=== PATIENT | female | born 1970 | race Caucasian/White ===

== ENCOUNTER 2018-08-13 15:49 | Inpatient (IN) | payer BC ==
[~2018-08-13] VITALS: Ht 167.6 cm; Wt 106.7 kg
[2018-08-13 18:00] VITALS: BP 145/84
[2018-08-13] MEDS ORDERED: FLUO20CA16 PO (18:05)
[2018-08-13] MEDS ORDERED: CARV3.12 PO (18:06)
[2018-08-13 18:22] LABS: BILIRUBIN,URINE NEGATIVE (NEG); CLARITY,URINE CLEAR; COLOR,URINE YELLOW; NITRITE,URINE NEGATIVE (NEG); PROTEIN,URINE NEGATIVE (NEG-TRACE); UROBILINOGEN,URINE 0.2 mg/dL (0.2 mg/dL)
[2018-08-13 18:27] LABS: BARBITURATES NEG (NEG); BENZODIAZEPINES NEG (NEG); CANNABINOIDS NEG (NEG); COCAINE NEG (NEG); METHADONE NEG (NEG); OPIATES NEG (NEG); PHENCYCLIDINE NEG (NEG)
[2018-08-13 18:37] LABS: AMPHETAMINE/METHAMPHETAMINE NEG (NEG)
[2018-08-13 18:39] LABS: BACTERIA,URINE FEW /HPF (0-FEW); RBC,URINE OCC /HPF (0-2); SQUAMOUS EPITHELIAL CELL,UR OCC /LPF; WBC,URINE OCC /HPF (0-4)
[2018-08-13 19:37] VITALS: BP 145/71
[2018-08-13] MEDS: CIPROFLOXACIN 400MG PREMIX 200 ML IV SCH (20:05)
[2018-08-13] MEDS: ACETAMINOPHEN 325 MG TABLET. PO PRN (21:25)
[2018-08-13 23:35] VITALS: BP 112/67
[2018-08-14] MEDS: ACETAMINOPHEN 325 MG TABLET. PO PRN (03:23)
[2018-08-14 03:39] VITALS: BP 140/65
[2018-08-14 07:14] VITALS: BP 131/66
[2018-08-14] MEDS: CIPROFLOXACIN 400MG PREMIX 200 ML IV SCH (08:23)
--- NOTE | 2018-08-14 09:34 | PDOC2 ---
GI CONSULT Reason For Consult: Abd pain, gastroenteritis HPI: HPI: 47 y/o female transferred to [facility] from [facility]. Not feeling "normal" for about a week w/ nausea and some early satiety - gives examples of not finishing her mac 'n cheese and chicken strips at [employer] on and not eating much biscuits and gravy at home on Tuesday. Prior to that, spent some time at - her son attempted suicide and was there (now doing better and is home) - she ate in the cafeteria without issue and also at a nearby [employer]. On Tuesday night (a couple hours after biscuits and gravy), was playing Monopoly w/ her and son and developed a sharp pain "about two fingers above the belly button." Pain worsened the next day and spread to the left side around to flank/back but was able to eat spaghetti and cake and ice cream. Tebbetts a little feverish (says temp 100 at home). The pain is worse w/ deep breathing and movement. She feels best laying completely still though pain is constant. No improvement on Tuesday so decided to go to the ER. Workup there noted WBC 17.6 w/ normal LFTs, lipase, Hgb, and Cr. On CT: mesenteric edema in the epigastric region towards the mesenteric root and about the mid to distal gastric body likely reactive to infectious or inflammatory gastroenteritis, mild mesenteric edema about the pancreas although the pancreas appears otherwise normal, no evidence of bowel obstruction or bowel perforation , hepatomegaly and hepatic steatosis. No labs here, has been kept NPO, is on IV Cipro and Flagyl. Denies h/o heartburn/reflux. No dysphagia. No vomiting. Did have change in bowel pattern about 6 months ago - previously stooled every 3 days, now has a couple loose stools every day - last bowel movement was yesterday morning. No hematemesis, hematochezia, or melena. No weight loss. No previous EGD or colonoscopy. No GB, liver, pancreas, or ulcer history. When pain started, took 3 ibuprofen but does not use NSAIDs regularly. PMH: PMH: HTN, nephrolithiasis, depression/anxiety , laparoscopies (for endometriosis), hysterectomy, lymph node biopsy ( benign), myringotomy FH: Family History: Cancer (father - NHL), CVA, Hyperlipidemia, Hypertension Social History: Smoke: 1 pack per day ALCOHOL: rare Drugs: None ROS: GEN: +fever HEENT: Denies blurred vision, sore throat CV: Denies chest pain RESP: Denies shortness of air, cough GI: Per HPI : Denies hematuria, dysuria ENDO: Denies weight changes NEURO: Denies confusion, dizziness MSK: Denies weakness, joint pain/swelling SKIN: Denies jaundice, pruritus Vitals: Vitals: Vital Signs Date Time Temp Pulse Resp B/P (MAP) Pulse Ox O2 Delivery O2 Flow Rate FiO2 08/14/18 07:14 98.5 76 18 131/66 (87) 100 Room Air 98.5 Labs: Labs: Laboratory Tests Test 08/13/18 18:10 Urine Collection Type Unknown Urine Color Yellow Urine Clarity Clear Urine pH 7.0 Urine Specific [place] 1.020 Urine Protein Negative mg/dL (NEG-TRACE) Urine Glucose (UA) Negative mg/dL (NEG) Urine Ketones (Stick) Negative mg/dL (NEG) Urine Blood Moderate (NEG) Urine Nitrite Negative (NEG) Urine Bilirubin Negative (NEG) Urine Urobilinogen Dipstick 0.2 mg/dL (0.2 mg/dL) Urine Leukocyte Esterase Negative (NEG) Urine RBC Occ /HPF (0-2) Urine WBC Occ /HPF (0-4) Urine Squamous Epithelial Cells Occ /LPF Urine Bacteria Few /HPF (0-FEW) Urine Opiates Screen Neg (NEG) Urine Methadone Screen Neg (NEG) Urine Barbiturates Neg (NEG) Urine Phencyclidine Screen Neg (NEG) Urine Amphetamine/Methamphetamine Neg (NEG) Urine Benzodiazepines Screen Neg (NEG) Urine Cocaine Screen Neg (NEG) Urine Cannabinoids Screen Neg (NEG) Urine Ethyl Alcohol Neg (NEG) Allergies: Coded Allergies: codeine (Verified Allergy, Unknown, 08/13/18) hydrocodone (Verified Allergy, Unknown, 08/13/18) Medications: Current Medications Medications (Trade) Dose Ordered Sig/Maritza Route PRN Reason Start Time Stop Time Status Last Admin Dose Admin Ciprofloxacin/ Dextrose 200 ml @ 200 mls/hr Q12HR IV 08/13/18 21:00 08/14/18 08:23 Metronidazole 100 ml @ 100 mls/hr Q8HRS IV 08/13/18 22:00 08/14/18 05:15 Acetaminophen (Tylenol) 650 mg PRN Q6HRS PRN PO fever/pain 08/13/18 20:45 08/14/18 03:23 Imaging: Imaging: Per HPI. PE: GEN: NAD, family/friends present HEENT: Atraumatic, PERRL LUNGS: CTAB HEART: RRR ABD: quiet BS, large, epigastric tenderness to light palpation tracking to LUQ and under ribs/around to flank EXTREMITY: No edema SKIN: No rashes, no jaundice NEURO/PSYCH: A & O 3 A/P: A/P: Periumbilical/LUQ pain, early satiety Fever, leucocytosis Abnormal CT - mesenteric edema in the epigastric region towards the mesenteric root and about the mid to distal gastric body, mild mesenteric edema about the pancreas CRC screen - average risk Hepatic steatosis -- Reviewed w/ Dr. Salguero - herman to try clear liquids; he will see this afternoon. Note plans to recheck labs and for ID consult. JELANI KATE Aug 14, 2018 09:34
[2018-08-14] MEDS ORDERED: ONDANSETRON ODT 4 MG TAB.RAPDIS. PO PRN (09:45)
[2018-08-14] MEDS ORDERED: ONDANSETRON PF 4 MG/2 ML VIAL. IV PRN (09:45)
[2018-08-14] MEDS: FLUoxetine HCL 20 MG CAPSULE PO SCH (09:55)
[2018-08-14] MEDS: CARVEDILOL 3.125 MG TABLET. PO SCH ×2 (09:56→17:44)
[2018-08-14] MEDS: fentaNYL PF VIAL 100 MCG/2 ML VIAL IV PRN ×4 (09:58→21:51)
[2018-08-14] MEDS: IV NORMAL SALINE 1000ML BAG 1,000 ML IV SCH (09:58)
[2018-08-14] MEDS ORDERED: PANTOPRAZOLE IV PUSH 40 MG VIAL. IVP ONE (10:30)
[2018-08-14 10:43] LABS: BASO # 0.1 x10^3/uL (0.0-0.2); BASO % 1 % (0-3); EOS # 0.2 x10^3/uL (0.0-0.7); EOS % 1 % (0-3); HEMOGLOBIN 13.4 g/dL (12.0-15.5); LYMPH # 2.8 x10^3/uL (1.0-4.8); LYMPH % 20 % (24-48); MEAN CORPUSCULAR HEMOGLOBIN 29 pg (25-35); MEAN CORPUSCULAR HGB CONC 33 g/dL (31-37); MEAN CORPUSCULAR VOLUME 90 fL (79-100); MONO # 0.9 x10^3/uL (0.0-1.1); MONO % 6 % (0-9); NEUT # 10.1 x10^3uL (1.8-7.7); NEUT % 72 % (31-73); PLATELET COUNT 278 x10^3/uL (140-400); RED BLOOD COUNT 4.56 x10^6/uL (3.50-5.40); RED CELL DISTRIBUTION WIDTH 13.9 % (11.5-14.5); WHITE BLOOD COUNT 14.1 x10^3/uL (4.0-11.0)
[2018-08-14 10:53] LABS: PROTHROMBIN TIME PATIENT 15.5 SEC (11.7-14.0)
[2018-08-14 10:57] VITALS: BP 107/58
[2018-08-14 11:09] LABS: ALBUMIN/GLOBULIN RATIO 0.7 (1.0-1.7); CALCIUM 8.6 mg/dL (8.5-10.1); CREATININE 0.7 mg/dL (0.6-1.0); GFR 89.7; POTASSIUM 3.5 mmol/L (3.5-5.1); TOTAL BILIRUBIN 0.7 mg/dL (0.2-1.0); TOTAL PROTEIN 7.3 g/dL (6.4-8.2)
--- NOTE | 2018-08-14 11:50 | NUR ---
SW following pt for anticipated dc needs. Chart reviewed. Pt is home from spouse and on room air. No discharge recommendation/SW needs noted at this time. Will continue to follow.
--- NOTE | 2018-08-14 13:36 | PDOC1 ---
History and Physical Date of Admission Date of Admission DATE: 08/14/18 TIME: 13:30 Identification/Chief Complaint Chief Complaint Acute onset upper abdominal pain and back pain Source Source: Caregiver, Chart review, Patient History of Present Illness History of Present Illness 78-year-old white female, obese lives with family, Tuesday or Tuesday acute onset upper abdominal pain also involving the back. Maybe moved his left upper quadrant. No known precipitating factors,foods, no recent travels or sick contacts. Notices it gets better when she is laying still or supine her left side. LOw grade temp? Went to [facility], WBC 17,000 with normal BMP and normal UA. CAT scan shows mesenteric edema around the pancreas also could represent nonspecific enteritis. Patient transferred here for GI. Has chronic diarrhea, 2 loose stool episodes a day. Never has a colonoscopy. Positive history of IBD Crohn's or ulcerative colitis in the aunt. Family history of recurrent diverticulitis. Has seen GI and ID. Getting IV antibiotics Cipro Flagyl. Still some pain but only needed 1 dose of fentanyl. I have updated her with the findings. Lipase is normal. Never had similar symptoms before NO Blood loose stools. The abd dc she describes more gassy sensation, feeling bloated easily Past Medical History Cardiovascular: HTN Pulmonary: Bronchitis GI: GERD Past Surgical History Past Surgical History: Hysterectomy Family History Family History: Other (diverticulitis, IBD in aunt) Social History Smoke: <1 pack per day ALCOHOL: occassional Drugs: None Current Medications Current Medications Current Medications Ciprofloxacin/ Dextrose 200 ml @ 200 mls/hr Q12HR IV Last administered on 08/14at 08:23; Start 08/13/18 at 21:00; Stop 08/14/18 at 12:43; Status DC Metronidazole 100 ml @ 100 mls/hr Q8HRS IV Last administered on 08/14/18at 05: 15; Start 08/13/18 at 22:00; Stop 08/14/18 at 12:43; Status DC Acetaminophen (Tylenol) 650 mg PRN Q6HRS PRN PO fever/pain Last administered on 08/14/18at 03:23; Start 08/13/18 at 20:45 Ondansetron HCl (Zofran) 4 mg PRN Q6HRS PRN IV NAUSEA/VOMITING; Start 08/14/18 at 09:45 Ondansetron HCl (Zofran Odt) 4 mg PRN Q6HRS PRN PO NAUSEA/VOMITING; Start 08/14 at 09:45 Fentanyl Citrate (Fentanyl 2ml Vial) 50 mcg PRN Q2HR PRN IV PAIN Last administered on 08/14/18at 09:58; Start 08/14/18 at 09:45 Pantoprazole Sodium (PROTONIX VIAL for IV PUSH) 40 mg DAILYAC IVP ; Start at 07:30; Stop 08/15/18 at 07:30; Status DC Pantoprazole Sodium (PROTONIX VIAL for IV PUSH) 40 mg 1X ONCE IVP Last administered on 08/14/18at 09:56; Start 08/14/18 at 10:30; Stop 08/14/18 at 10:31 ; Status DC Sodium Chloride 1,000 ml @ 100 mls/hr Q10H IV Last administered on 08/14/18at 09:58; Start 08/14/18 at 10:30 Carvedilol (Coreg) 3.125 mg BIDWMEALS PO Last administered on 08/14/18at 09:56; Start 08/14/18 at 10:30 Fluoxetine HCl (PROzac) 20 mg DAILYWBKFT PO Last administered on 08/14/18at 09: 55; Start 08/14/18 at 10:30 Pantoprazole Sodium (Protonix) 40 mg DAILYAC PO ; Start 08/15/18 at 07:30 Piperacillin Sod/ Tazobactam Sod 3.375 gm/Sodium Chloride 50 ml @ 100 mls/hr Q6HRS IV ; Start 08/14/18 at 13:30 Active Scripts Active Reported Coreg (Carvedilol) 3.125 Mg Tablet 3.125 Mg PO BIDWMEALS Prozac (Fluoxetine Hcl) 20 Mg Capsule 1 Cap PO DAILYWBKFT Allergies Allergies: Coded Allergies: codeine (Verified Allergy, Intermediate, 08/14/18) hydrocodone (Verified Allergy, Intermediate, 08/14/18) ROS Review of System Loose stools chronic for her 6 months Abdominal pain as per history of present illness, low-grade temperatures at home , the rest of ROS 14 point negative Physical Exam General: Alert, Oriented X3, Cooperative, No acute distress HEENT: Atraumatic, PERRLA, EOMI Lungs: Clear to auscultation, Normal air movement Heart: S1S2, RRR, no thrills, no rubs, no gallops, no murmurs Cardiovascular: S1, S2 Breasts: Normal, Rt breast nml w/o mass, Lt breast nml w/o mass, Nipples normal Abdomen: Soft, Other (hyperactive bowel sounds tenderness to moderate palpation epigastric area, no guarding) Rectal Exam: not examined Extremities: No clubbing, No cyanosis, No edema, Normal pulses, No tenderness/ swelling Skin: No breakdown Neuro: Normal gait, Normal speech, Strength at 5/5 X4 ext, Normal tone, Sensation intact, Cranial nerves 3-12 NL, Reflexes 2+ Psych/Mental Status: Mental status NL, Mood NL Vitals Vitals Vital Signs Date Time Temp Pulse Resp B/P (MAP) Pulse Ox O2 Delivery O2 Flow Rate FiO2 08/14/18 10:57 98.6 78 18 107/58 (74) 97 Room Air 98.6 Labs Labs Laboratory Tests Test 08/13/18 18:10 08/14/18 10:15 Urine Collection Type Unknown Urine Color Yellow Urine Clarity Clear Urine pH 7.0 Urine Specific [place] 1.020 Urine Protein Negative mg/dL (NEG-TRACE) Urine Glucose (UA) Negative mg/dL (NEG) Urine Ketones (Stick) Negative mg/dL (NEG) Urine Blood Moderate (NEG) Urine Nitrite Negative (NEG) Urine Bilirubin Negative (NEG) Urine Urobilinogen Dipstick 0.2 mg/dL (0.2 mg/dL) Urine Leukocyte Esterase Negative (NEG) Urine RBC Occ /HPF (0-2) Urine WBC Occ /HPF (0-4) Urine Squamous Epithelial Cells Occ /LPF Urine Bacteria Few /HPF (0-FEW) Urine Opiates Screen Neg (NEG) Urine Methadone Screen Neg (NEG) Urine Barbiturates Neg (NEG) Urine Phencyclidine Screen Neg (NEG) Urine Amphetamine/Methamphetamine Neg (NEG) Urine Benzodiazepines Screen Neg (NEG) Urine Cocaine Screen Neg (NEG) Urine Cannabinoids Screen Neg (NEG) Urine Ethyl Alcohol Neg (NEG) White Blood Count 14.1 x10^3/uL (4.0-11.0) Red Blood Count 4.56 x10^6/uL (3.50-5.40) Hemoglobin 13.4 g/dL (12.0-15.5) Hematocrit 41.0 % (36.0-47.0) Mean Corpuscular Volume 90 fL (79-100) Mean Corpuscular Hemoglobin 29 pg (25-35) Mean Corpuscular Hemoglobin Concent 33 g/dL (31-37) Red Cell Distribution Width 13.9 % (11.5-14.5) Platelet Count 278 x10^3/uL (140-400) Neutrophils (%) (Auto) 72 % (31-73) Lymphocytes (%) (Auto) 20 % (24-48) Monocytes (%) (Auto) 6 % (0-9) Eosinophils (%) (Auto) 1 % (0-3) Basophils (%) (Auto) 1 % (0-3) Neutrophils # (Auto) 10.1 x10^3uL (1.8-7.7) Lymphocytes # (Auto) 2.8 x10^3/uL (1.0-4.8) Monocytes # (Auto) 0.9 x10^3/uL (0.0-1.1) Eosinophils # (Auto) 0.2 x10^3/uL (0.0-0.7) Basophils # (Auto) 0.1 x10^3/uL (0.0-0.2) Prothrombin Time 15.5 SEC (11.7-14.0) Prothromb Time International Ratio 1.3 (0.8-1.1) Sodium Level 140 mmol/L (136-145) Potassium Level 3.5 mmol/L (3.5-5.1) Chloride Level 103 mmol/L (98-107) Carbon Dioxide Level 27 mmol/L (21-32) Anion Gap 10 (6-14) Blood Urea Nitrogen 6 mg/dL (7-20) Creatinine 0.7 mg/dL (0.6-1.0) Estimated GFR (Cockcroft-Gault) 89.7 BUN/Creatinine Ratio 9 (6-20) Glucose Level 119 mg/dL (70-99) Calcium Level 8.6 mg/dL (8.5-10.1) Total Bilirubin 0.7 mg/dL (0.2-1.0) Aspartate Amino Transf (AST/SGOT) 11 U/L (15-37) Alanine Aminotransferase (ALT/SGPT) 16 U/L (14-59) Alkaline Phosphatase 74 U/L (46-116) Total Protein 7.3 g/dL (6.4-8.2) Albumin 3.0 g/dL (3.4-5.0) Albumin/Globulin Ratio 0.7 (1.0-1.7) Laboratory Tests Test 08/13/18 18:10 08/14/18 10:15 Urine Collection Type Unknown Urine Color Yellow Urine Clarity Clear Urine pH 7.0 Urine Specific [place] 1.020 Urine Protein Negative mg/dL (NEG-TRACE) Urine Glucose (UA) Negative mg/dL (NEG) Urine Ketones (Stick) Negative mg/dL (NEG) Urine Blood Moderate (NEG) Urine Nitrite Negative (NEG) Urine Bilirubin Negative (NEG) Urine Urobilinogen Dipstick 0.2 mg/dL (0.2 mg/dL) Urine Leukocyte Esterase Negative (NEG) Urine RBC Occ /HPF (0-2) Urine WBC Occ /HPF (0-4) Urine Squamous Epithelial Cells Occ /LPF Urine Bacteria Few /HPF (0-FEW) Urine Opiates Screen Neg (NEG) Urine Methadone Screen Neg (NEG) Urine Barbiturates Neg (NEG) Urine Phencyclidine Screen Neg (NEG) Urine Amphetamine/Methamphetamine Neg (NEG) Urine Benzodiazepines Screen Neg (NEG) Urine Cocaine Screen Neg (NEG) Urine Cannabinoids Screen Neg (NEG) Urine Ethyl Alcohol Neg (NEG) White Blood Count 14.1 x10^3/uL (4.0-11.0) Red Blood Count 4.56 x10^6/uL (3.50-5.40) Hemoglobin 13.4 g/dL (12.0-15.5) Hematocrit 41.0 % (36.0-47.0) Mean Corpuscular Volume 90 fL (79-100) Mean Corpuscular Hemoglobin 29 pg (25-35) Mean Corpuscular Hemoglobin Concent 33 g/dL (31-37) Red Cell Distribution Width 13.9 % (11.5-14.5) Platelet Count 278 x10^3/uL (140-400) Neutrophils (%) (Auto) 72 % (31-73) Lymphocytes (%) (Auto) 20 % (24-48) Monocytes (%) (Auto) 6 % (0-9) Eosinophils (%) (Auto) 1 % (0-3) Basophils (%) (Auto) 1 % (0-3) Neutrophils # (Auto) 10.1 x10^3uL (1.8-7.7) Lymphocytes # (Auto) 2.8 x10^3/uL (1.0-4.8) Monocytes # (Auto) 0.9 x10^3/uL (0.0-1.1) Eosinophils # (Auto) 0.2 x10^3/uL (0.0-0.7) Basophils # (Auto) 0.1 x10^3/uL (0.0-0.2) Prothrombin Time 15.5 SEC (11.7-14.0) Prothromb Time International Ratio 1.3 (0.8-1.1) Sodium Level 140 mmol/L (136-145) Potassium Level 3.5 mmol/L (3.5-5.1) Chloride Level 103 mmol/L (98-107) Carbon Dioxide Level 27 mmol/L (21-32) Anion Gap 10 (6-14) Blood Urea Nitrogen 6 mg/dL (7-20) Creatinine 0.7 mg/dL (0.6-1.0) Estimated GFR (Cockcroft-Gault) 89.7 BUN/Creatinine Ratio 9 (6-20) Glucose Level 119 mg/dL (70-99) Calcium Level 8.6 mg/dL (8.5-10.1) Total Bilirubin 0.7 mg/dL (0.2-1.0) Aspartate Amino Transf (AST/SGOT) 11 U/L (15-37) Alanine Aminotransferase (ALT/SGPT) 16 U/L (14-59) Alkaline Phosphatase 74 U/L (46-116) Total Protein 7.3 g/dL (6.4-8.2) Albumin 3.0 g/dL (3.4-5.0) Albumin/Globulin Ratio 0.7 (1.0-1.7) VTE Prophylaxis Ordered VTE Prophylaxis Devices: Yes VTE Pharmacological Prophylaxi: Yes Assessment/Plan Assessment/Plan Enteritis, mesenteric inflammation around the pancreas Normal lipase Leukocytosis/SIRS - WBC 17 at [facility] Family history IBD-aunt Chronic diarrhea-2 loose stools 6 months Never had a c scope PLAN: Admit 2 MN So far liquid diet and tolerating fine-she is eager to have some solids I don't see any reason why we cannot do GI soft Continue IV abx GI and ID consulted Recheck labs, WBC 14 today from 17 (lactate only 1 at [facility]) I did explain all her findings at [facility] and she understands We'll need c scope down the line Home meds reconciled Mg RN at bedside APOLINAR CULLEN MD Aug 14, 2018 13:36
[2018-08-14] MEDS: PIPERACILLIN/TAZOBACTAM 3.375 GM in IV NORMAL SALINE 50ML 50 ML IV SCH ×2 (13:45→17:44)
[2018-08-14 14:50] VITALS: BP 105/56
--- NOTE | 2018-08-14 15:41 | CONS ---
DATE OF CONSULTATION: 08/14/2018 REFERRING PHYSICIAN: Dr. Crews. REASON FOR CONSULTATION: Abdominal pain. HISTORY OF PRESENT ILLNESS: A 48-year-old female transferred to [facility] from [facility] where she presented with complaints of sudden onset of abdominal pain last Tuesday when she and her and son were playing monopoly. It started around the umbilical area and moved to the left upper quadrant radiating to the flank, it was a stabbing in nature, more comfortable with standing, worse with lying down flat. Then, it continued to remain the same and was worse with any movement and with deep breathing. She has bloating. She had low-grade fever, no chills, some nausea, no vomiting. She has diarrhea, which is chronic for the last 6 months for 2-3 times a day. No change in bowel habits. She has not had a colonoscopy done. No sick contact. No recent travel. No recent immunization. No recent antibiotics. The patient does have a history of kidney stone. She underwent a CT of the abdomen at [facility], which showed mesenteric edema in the epigastric region towards the mesenteric root and about the mid to distal gastric body. This was likely reactive to infectious or inflammatory gastroenteritis. There is mild mesenteric edema about the pancreas, although the pancreas appears otherwise normal, but correlate with amylase and lipase values to exclude pancreatitis. No evidence of bowel obstruction or evidence of bowel perforation, hepatomegaly and hepatic steatosis. The patient was started on pantoprazole, ciprofloxacin, Flagyl and then transferred here for further GI input. Today, the patient states her pain is better with pain medication. She has 1-2 bowel movements, loose. No blood in stools. They are not black in color. Some nausea, no vomiting. Pain remains mainly in the umbilical area, going to the left flank. PAST MEDICAL HISTORY: Anxiety, depression, fallen arches, hypertension, obesity, tarsal tunnel syndrome, status post hysterectomy in 2012, status post laparoscopy for endometriosis long time back. Recent myringotomy bilateral with ventilation tube insertion. Arthrodesis anterior interbody, minimal diskectomy cervical. Tympanoplasty with mastoidectomy, 05/18/2018. FAMILY HISTORY: As per HPI. SOCIAL HISTORY: Smokes 1 pack per day. ETOH: None. No illicit drug use. , lives with and son. CURRENT MEDICATIONS: Cipro, metronidazole. Other medications reviewed in medication list. REVIEW OF SYSTEMS: CONSTITUTIONAL: Low-grade fever, otherwise negative. HEENT: Negative. EYES: Negative. RESPIRATORY: Negative. CARDIAC: Negative. GASTROINTESTINAL: As above. GENITOURINARY: Negative. MUSCULOSKELETAL: Negative. DERMATOLOGIC: Negative. NEUROLOGIC: Negative. HEMATOLOGIC: Negative. PSYCHIATRIC: Behavioral health negative.. ALLERGIES: CODEINE, HYDROCODONE. PHYSICAL EXAMINATION: VITAL SIGNS: Temperature 98.6, pulse 78, respiratory rate 18, blood pressure 104/58, T-max 101.0. GENERAL: Alert, oriented x 3, pleasant female, well nourished, well developed, no acute distress, lying comfortably in bed. HEENT: Normocephalic, atraumatic, anicteric. No thrush. Oral mucosa moist. NECK: Supple. No JVD. No thyromegaly. LUNGS: Clear bilaterally. No wheezing. CARDIOVASCULAR: S1, S2. No gallops, murmurs, rubs. ABDOMEN: Soft. Tenderness in the periumbilical area going up the epigastric area with light palpation, tracking to the left flank. No masses felt. No rebound, no guarding. EXTREMITIES: No edema, no cyanosis. SKIN: Warm and dry. No generalized rash. NEUROLOGIC: Alert and oriented x 3, grossly nonfocal. PSYCHIATRIC: Cooperative, appropriate mood and affect. MUSCULOSKELETAL: No joint swelling. No decrease in range of motion. LABORATORY DATA: WBC14 K hemoglobin 13.4, hematocrit 41, platelets 278, neutrophils 72, lymphocytes 20. Sodium 140, potassium 3.5, chloride 103, bicarbonate 27, BUN 6, creatinine 0.7, glucose 119, calcium 8.6, total bilirubin 0.7, AST 11, ALT 16, alkaline phosphatase 74, total protein 7.3, albumin 3.0. UA negative with moderate blood. Toxicology screen negative. RADIOLOGY: CT abdomen and pelvis. Impression: As above. IMPRESSION: 1. Periumbilical left upper quadrant and left flank pain, sudden in onset, bloating with nausea aggravated with meals with abnormalities on abdominal CT showing mesenteric edema in the epigastric region towards the mesenteric root and about mid to distal gastric body mild mesenteric edema around the pancreas. Lipase is within normal limits. Etiology likely inflammatory. 2. Leukocytosis likely reactive, no abscess on abdominal CT.Low grade fevers 3. Hepatic steatosis. 4. History of recent mastoidectomy, left, 05/18/2018, with myringotomy and tympanoplasty tube insertion, stable, released by surgeon at outside hospital 3 weeks ago.Stable 5. History of kidney stones. UA negative at outside hospital. RECOMMENDATIONS: 1. Discontinue IV Flagyl and Cipro. 2. Start the patient on empiric Zosyn for now. 3. GI is following.will likely need endoscopy 4. Send stool for cultures, doubt infectious as she has it for the last 6 months. 5. Discussed with RN. Thank you for consulting Infectious Disease to participate in this patient's care. If you have any questions, do not hesitate to contact me. LIZ TRAYLOR MD DR: KAT/yandel JOB#: [id number] / [id number] USE
[2018-08-14 19:48] VITALS: BP 104/51
[2018-08-14] MEDS: LACTOBACILLUS RHAMNOSUS GG 1 CAPSULE. PO SCH (20:47)
[2018-08-14 22:48] VITALS: BP 102/55
[2018-08-15] VITALS (12 sets, daily range): BP systolic 98–148; BP diastolic 42–96
[2018-08-15] MEDS: PIPERACILLIN/TAZOBACTAM 3.375 GM in IV NORMAL SALINE 50ML 50 ML IV SCH ×4 (00:19→18:42)
[2018-08-15] MEDS: fentaNYL PF VIAL 100 MCG/2 ML VIAL IV PRN ×7 (00:20→21:01)
[2018-08-15] MEDS: IV NORMAL SALINE 1000ML BAG 1,000 ML IV SCH ×4 (00:31→18:42)
[2018-08-15] MEDS: ACETAMINOPHEN 325 MG TABLET. PO PRN (02:56)
[2018-08-15 05:20] LABS: HEMATOCRIT 37.1 % (36.0-47.0); HEMOGLOBIN 12.2 g/dL (12.0-15.5); RED BLOOD COUNT 4.06 x10^6/uL (3.50-5.40); RED CELL DISTRIBUTION WIDTH 13.8 % (11.5-14.5); WHITE BLOOD COUNT 12.7 x10^3/uL (4.0-11.0)
[2018-08-15 05:44] LABS: ALBUMIN 2.8 g/dL (3.4-5.0); ALBUMIN/GLOBULIN RATIO 0.8 (1.0-1.7); CALCIUM 8.2 mg/dL (8.5-10.1); CREATININE 0.8 mg/dL (0.6-1.0); GFR 76.9; POTASSIUM 3.7 mmol/L (3.5-5.1); TOTAL BILIRUBIN 0.3 mg/dL (0.2-1.0); TOTAL PROTEIN 6.5 g/dL (6.4-8.2)
[2018-08-15] MEDS ORDERED: PANTOPRAZOLE IV PUSH 40 MG VIAL. IVP SCH (07:30)
[2018-08-15] MEDS: LACTOBACILLUS RHAMNOSUS GG 1 CAPSULE. PO SCH ×2 (07:38→20:55)
[2018-08-15] MEDS: FLUoxetine HCL 20 MG CAPSULE PO SCH (07:39)
[2018-08-15] MEDS: PANTOPRAZOLE 40 MG TABLET.DR. PO SCH (07:39)
[2018-08-15] MEDS: CARVEDILOL 3.125 MG TABLET. PO SCH ×2 (08:00→18:41)
[2018-08-15] MEDS ORDERED: LACT1CAP19 PO (09:17)
[2018-08-15] MEDS ORDERED: OXYC1TAB15 PO (09:17)
[2018-08-15] MEDS ORDERED: Pantoprazole PO (09:17)
[2018-08-15] MEDS ORDERED: ONDA4TAB12 PO (09:17)
--- NOTE | 2018-08-15 09:21 | PDOC3 ---
Discharge Summary Visit Information Date of Admission: Aug 13, 2018 Date of Discharge: Aug 15, 2018 Admitting Diagnosis Comment: Enteritis, mesenteric inflammation around the pancreas Normal lipase Leukocytosis/SIRS - WBC 17 at [facility] Family history IBD-aunt Chronic diarrhea-2 loose stools 6 months Never had a c scope Brief Hospital Course Allergies Allergies Coded Allergies Type Severity Reaction Last Updated Verified codeine Allergy Intermediate 08/14/18 Yes hydrocodone Allergy Intermediate 08/14/18 Yes Vital Signs Vital Signs Date Time Temp Pulse Resp B/P (MAP) Pulse Ox O2 Delivery O2 Flow Rate FiO2 08/15/18 07:43 Room Air 08/15/18 07:13 98.1 64 18 98/42 (60) 96 98.1 Lab Results Laboratory Tests Test 08/13/18 18:10 08/14/18 10:15 08/15/18 04:25 Urine Collection Type Unknown Urine Color Yellow Urine Clarity Clear Urine pH 7.0 Urine Specific Sula 1.020 Urine Protein Negative mg/dL (NEG-TRACE) Urine Glucose (UA) Negative mg/dL (NEG) Urine Ketones (Stick) Negative mg/dL (NEG) Urine Blood Moderate (NEG) Urine Nitrite Negative (NEG) Urine Bilirubin Negative (NEG) Urine Urobilinogen Dipstick 0.2 mg/dL (0.2 mg/dL) Urine Leukocyte Esterase Negative (NEG) Urine RBC Occ /HPF (0-2) Urine WBC Occ /HPF (0-4) Urine Squamous Epithelial Cells Occ /LPF Urine Bacteria Few /HPF (0-FEW) Urine Opiates Screen Neg (NEG) Urine Methadone Screen Neg (NEG) Urine Barbiturates Neg (NEG) Urine Phencyclidine Screen Neg (NEG) Urine Amphetamine/Methamphetamine Neg (NEG) Urine Benzodiazepines Screen Neg (NEG) Urine Cocaine Screen Neg (NEG) Urine Cannabinoids Screen Neg (NEG) Urine Ethyl Alcohol Neg (NEG) White Blood Count 14.1 x10^3/uL (4.0-11.0) 12.7 x10^3/uL (4.0-11.0) Red Blood Count 4.56 x10^6/uL (3.50-5.40) 4.06 x10^6/uL (3.50-5.40) Hemoglobin 13.4 g/dL (12.0-15.5) 12.2 g/dL (12.0-15.5) Hematocrit 41.0 % (36.0-47.0) 37.1 % (36.0-47.0) Mean Corpuscular Volume 90 fL (79-100) 92 fL (79-100) Mean Corpuscular Hemoglobin 29 pg (25-35) 30 pg (25-35) Mean Corpuscular Hemoglobin Concent 33 g/dL (31-37) 33 g/dL (31-37) Red Cell Distribution Width 13.9 % (11.5-14.5) 13.8 % (11.5-14.5) Platelet Count 278 x10^3/uL (140-400) 262 x10^3/uL (140-400) Neutrophils (%) (Auto) 72 % (31-73) Lymphocytes (%) (Auto) 20 % (24-48) Monocytes (%) (Auto) 6 % (0-9) Eosinophils (%) (Auto) 1 % (0-3) Basophils (%) (Auto) 1 % (0-3) Neutrophils # (Auto) 10.1 x10^3uL (1.8-7.7) Lymphocytes # (Auto) 2.8 x10^3/uL (1.0-4.8) Monocytes # (Auto) 0.9 x10^3/uL (0.0-1.1) Eosinophils # (Auto) 0.2 x10^3/uL (0.0-0.7) Basophils # (Auto) 0.1 x10^3/uL (0.0-0.2) Prothrombin Time 15.5 SEC (11.7-14.0) Prothromb Time International Ratio 1.3 (0.8-1.1) Sodium Level 140 mmol/L (136-145) 142 mmol/L (136-145) Potassium Level 3.5 mmol/L (3.5-5.1) 3.7 mmol/L (3.5-5.1) Chloride Level 103 mmol/L (98-107) 107 mmol/L (98-107) Carbon Dioxide Level 27 mmol/L (21-32) 24 mmol/L (21-32) Anion Gap 10 (6-14) 11 (6-14) Blood Urea Nitrogen 6 mg/dL (7-20) 4 mg/dL (7-20) Creatinine 0.7 mg/dL (0.6-1.0) 0.8 mg/dL (0.6-1.0) Estimated GFR (Cockcroft-Gault) 89.7 76.9 BUN/Creatinine Ratio 9 (6-20) 5 (6-20) Glucose Level 119 mg/dL (70-99) 118 mg/dL (70-99) Calcium Level 8.6 mg/dL (8.5-10.1) 8.2 mg/dL (8.5-10.1) Total Bilirubin 0.7 mg/dL (0.2-1.0) 0.3 mg/dL (0.2-1.0) Aspartate Amino Transf (AST/SGOT) 11 U/L (15-37) 13 U/L (15-37) Alanine Aminotransferase (ALT/SGPT) 16 U/L (14-59) 18 U/L (14-59) Alkaline Phosphatase 74 U/L (46-116) 78 U/L (46-116) Total Protein 7.3 g/dL (6.4-8.2) 6.5 g/dL (6.4-8.2) Albumin 3.0 g/dL (3.4-5.0) 2.8 g/dL (3.4-5.0) Albumin/Globulin Ratio 0.7 (1.0-1.7) 0.8 (1.0-1.7) Laboratory Tests Test 08/14/18 10:15 08/15/18 04:25 White Blood Count 14.1 x10^3/uL (4.0-11.0) 12.7 x10^3/uL (4.0-11.0) Red Blood Count 4.56 x10^6/uL (3.50-5.40) 4.06 x10^6/uL (3.50-5.40) Hemoglobin 13.4 g/dL (12.0-15.5) 12.2 g/dL (12.0-15.5) Hematocrit 41.0 % (36.0-47.0) 37.1 % (36.0-47.0) Mean Corpuscular Volume 90 fL (79-100) 92 fL (79-100) Mean Corpuscular Hemoglobin 29 pg (25-35) 30 pg (25-35) Mean Corpuscular Hemoglobin Concent 33 g/dL (31-37) 33 g/dL (31-37) Red Cell Distribution Width 13.9 % (11.5-14.5) 13.8 % (11.5-14.5) Platelet Count 278 x10^3/uL (140-400) 262 x10^3/uL (140-400) Neutrophils (%) (Auto) 72 % (31-73) Lymphocytes (%) (Auto) 20 % (24-48) Monocytes (%) (Auto) 6 % (0-9) Eosinophils (%) (Auto) 1 % (0-3) Basophils (%) (Auto) 1 % (0-3) Neutrophils # (Auto) 10.1 x10^3uL (1.8-7.7) Lymphocytes # (Auto) 2.8 x10^3/uL (1.0-4.8) Monocytes # (Auto) 0.9 x10^3/uL (0.0-1.1) Eosinophils # (Auto) 0.2 x10^3/uL (0.0-0.7) Basophils # (Auto) 0.1 x10^3/uL (0.0-0.2) Prothrombin Time 15.5 SEC (11.7-14.0) Prothromb Time International Ratio 1.3 (0.8-1.1) Sodium Level 140 mmol/L (136-145) 142 mmol/L (136-145) Potassium Level 3.5 mmol/L (3.5-5.1) 3.7 mmol/L (3.5-5.1) Chloride Level 103 mmol/L (98-107) 107 mmol/L (98-107) Carbon Dioxide Level 27 mmol/L (21-32) 24 mmol/L (21-32) Anion Gap 10 (6-14) 11 (6-14) Blood Urea Nitrogen 6 mg/dL (7-20) 4 mg/dL (7-20) Creatinine 0.7 mg/dL (0.6-1.0) 0.8 mg/dL (0.6-1.0) Estimated GFR (Cockcroft-Gault) 89.7 76.9 BUN/Creatinine Ratio 9 (6-20) 5 (6-20) Glucose Level 119 mg/dL (70-99) 118 mg/dL (70-99) Calcium Level 8.6 mg/dL (8.5-10.1) 8.2 mg/dL (8.5-10.1) Total Bilirubin 0.7 mg/dL (0.2-1.0) 0.3 mg/dL (0.2-1.0) Aspartate Amino Transf (AST/SGOT) 11 U/L (15-37) 13 U/L (15-37) Alanine Aminotransferase (ALT/SGPT) 16 U/L (14-59) 18 U/L (14-59) Alkaline Phosphatase 74 U/L (46-116) 78 U/L (46-116) Total Protein 7.3 g/dL (6.4-8.2) 6.5 g/dL (6.4-8.2) Albumin 3.0 g/dL (3.4-5.0) 2.8 g/dL (3.4-5.0) Albumin/Globulin Ratio 0.7 (1.0-1.7) 0.8 (1.0-1.7) Brief Hospital Course Ms. De is a 48 old white female with no significant past medical history, abdominal pain acute onset. No suspicious food intake or sick contacts or recent travel. Was a transfer from [facility] for findings of ileitis or mesenteric inflammation around the pancreas with WBC 17 transferred to [place] for GI. Consulted ID, had some fevers. Was initially on IV Cipro and Flagyl but shifted to Zosyn. Negative blood cultures. Still some pain but WBC is getting better to 12 on discharge with no more fevers. She wants to go home. Diarrhea is chronic for her 6 months now-GI on board. Never had a colonoscopy and will need one once enteritis has resolved. I did try my best to explain to her CAT scan findings, blood work, and the plan of care. There was some frustration on her part she thought we did not do as well as expected or as promised to her by [facility]. But I did discuss that she already had blood work and CAT scan, and she would not or rather would not be florian for colonoscopy given current inflammation with a risk puncturing colon. I think she understood after I explained those to her Consults performed GI, ID Procedures performed none just blood work Discharge disposition to home Discharge instructions follow-up with PCP if no better. She may choose to follow up with GI if she wants regarding the 6 months chronic diarrhea will need colonoscopy in the future dc time 35 minutes. > 60% DC education counseling etc. Discharge Information Condition at Discharge: Improved, Stable Follow Up: Weeks (PCP if no better, GI regarding 6 months history of diarrhea) Disposition/Orders: D/C to Home Scheduled Carvedilol (Coreg ) 3.125 Mg Tablet, 3.125 MG PO BIDWMEALS for CARDIAC, ( Reported) Entered as Reported by: VALENTE FRANCISCO on 08/13/181805 Last Taken: Unknown Dose on 08/12/18 Last Action: Continued on 08/14/18943 by APOLINAR CULLEN Fluoxetine Hcl (Prozac) 20 Mg Capsule, 1 CAP PO DAILYWBKFT for depression, #30 Ref 1 (Reported) Entered as Reported by: VALENTE FRANCISCO on 08/13/181804 Last Taken: Unknown Dose on 08/12/18 Last Action: Continued on 08/14/18943 by APOLINAR CULLEN Lactobacillus Rhamnosus Gg (Culturelle) 1 Each Cap.sprink, 1 CAP PO BID for ileitis MDD 1 for 7 Days, #14 Prescribed by: APOLINAR CULLEN on 08/15/18916 [Pantoprazole] 40 MG TABLET.DR, 40 MG PO DAILYAC for gerd MDD 1, #90 Ref 2 Prescribed by: APOLINAR CULLEN on 08/15/18916 Scheduled PRN Ondansetron (Ondansetron Odt) 4 Mg Tab.rapdis, 4 MG PO PRN Q6HRS PRN for NAUSEA/ VOMITING MDD 1, #60 Prescribed by: APOLINAR CULLEN on 08/15/18916 Oxycodone/Apap 5-325 (Percocet 5-325 Mg Tablet ) 1 Each Tablet, 1 TAB PO PRN Q6HRS PRN for PAIN for 7 Days, #30 Ref 0 Prescribed by: APOLINAR CULLEN on 08/15/18916 APOLINAR CULLEN MD Aug 15, 2018 09:21
[2018-08-15] MEDS ORDERED: oxyCODONE/APAP 5/325 1 TAB TABLET PO ONE (09:30)
[2018-08-15] MEDS ORDERED: oxyCODONE/APAP 5/325 1 TAB TABLET PO PRN (09:30)
--- NOTE | 2018-08-15 09:47 | PDOC ---
Subjective: Subjective: I saw her earlier this morning. She said she had a bad night and she wanted to leave to go to another hospital. She ate yesterday and had worse pain overnight (mid to left abd around to back). No vomiting. Loose stool yesterday. Then said she ate breakfast this morning "because they want a stool sample." Wants to know why nothing has been done. Says her family says she should have never come to [place] and she's calling her doctor for another opinion. She wants to know why we can't see the imaged from her CT scan at [place]. Objective: Objective: Tmax 100.1 Vital Signs: Vital Signs Date Time Temp Pulse Resp B/P (MAP) Pulse Ox O2 Delivery O2 Flow Rate FiO2 08/15/18 09:00 Room Air 08/15/18 08:00 64 98/42 08/15/18 07:13 98.1 18 96 98.1 Labs: Laboratory Tests Test 08/14/18 10:15 08/15/18 04:25 White Blood Count 14.1 x10^3/uL 12.7 x10^3/uL Red Blood Count 4.56 x10^6/uL 4.06 x10^6/uL Hemoglobin 13.4 g/dL 12.2 g/dL Hematocrit 41.0 % 37.1 % Mean Corpuscular Volume 90 fL 92 fL Mean Corpuscular Hemoglobin 29 pg 30 pg Mean Corpuscular Hemoglobin Concent 33 g/dL 33 g/dL Red Cell Distribution Width 13.9 % 13.8 % Platelet Count 278 x10^3/uL 262 x10^3/uL Neutrophils (%) (Auto) 72 % Lymphocytes (%) (Auto) 20 % Monocytes (%) (Auto) 6 % Eosinophils (%) (Auto) 1 % Basophils (%) (Auto) 1 % Neutrophils # (Auto) 10.1 x10^3uL Lymphocytes # (Auto) 2.8 x10^3/uL Monocytes # (Auto) 0.9 x10^3/uL Eosinophils # (Auto) 0.2 x10^3/uL Basophils # (Auto) 0.1 x10^3/uL Prothrombin Time 15.5 SEC Prothromb Time International Ratio 1.3 Sodium Level 140 mmol/L 142 mmol/L Potassium Level 3.5 mmol/L 3.7 mmol/L Chloride Level 103 mmol/L 107 mmol/L Carbon Dioxide Level 27 mmol/L 24 mmol/L Anion Gap 10 11 Blood Urea Nitrogen 6 mg/dL 4 mg/dL Creatinine 0.7 mg/dL 0.8 mg/dL Estimated GFR (Cockcroft-Gault) 89.7 76.9 BUN/Creatinine Ratio 9 5 Glucose Level 119 mg/dL 118 mg/dL Calcium Level 8.6 mg/dL 8.2 mg/dL Total Bilirubin 0.7 mg/dL 0.3 mg/dL Aspartate Amino Transf (AST/SGOT) 11 U/L 13 U/L Alanine Aminotransferase (ALT/SGPT) 16 U/L 18 U/L Alkaline Phosphatase 74 U/L 78 U/L Total Protein 7.3 g/dL 6.5 g/dL Albumin 3.0 g/dL 2.8 g/dL Albumin/Globulin Ratio 0.7 0.8 PE: GEN: NAD LUNGS: CTAB HEART: RRR ABD: BS+, some distention, epigastric to periumbilical tenderness toward LUQ/ under left ribs along to left flank NEURO/PSYCH: A & O 3, frustrated A/P: Periumbilical/LUQ/left upper back pain Fever, leucocytosis (better) Abnormal CT @ [facility] - mesenteric edema in the epigastric region towards the mesenteric root and about the mid to distal gastric body, mild mesenteric edema about the pancreas -- Spent significant time. Reviewed w/ Dr. Salguero - will plan for EGD this evening at 5:00. D/w RN - she will request CT results be shared through the cloud. Since I have seen and discussed these plans, now has a discharge order. JELANI KATE Aug 15, 2018 09:47
--- NOTE | 2018-08-15 09:50 | PDOC ---
Infectious Disease Note Subjective: Subjective pt continues to have abdominal pain aggravated after meals had one loose bm ,unchanged from what she has at home fever low grade last night ROS: ROS Negative except for above. Vital Signs: Vital Signs Vital Signs Date Time Temp Pulse Resp B/P (MAP) Pulse Ox O2 Delivery O2 Flow Rate FiO2 08/15/18 09:00 Room Air 08/15/18 08:00 64 98/42 08/15/18 07:13 98.1 18 96 98.1 Physical Exam: PHYSICAL EXAM GENERAL: Alert, oriented x 3, pleasant female, well nourished, well developed, no acute distress, lying comfortably in bed. HEENT: Normocephalic, atraumatic, anicteric. No thrush. Oral mucosa moist. NECK: Supple. No JVD. No thyromegaly. LUNGS: Clear bilaterally. No wheezing. CARDIOVASCULAR: S1, S2. No gallops, murmurs, rubs. ABDOMEN: Soft. Tenderness in the periumbilical area going up the epigastric area with light palpation, tracking to the left flank. No masses felt. No rebound, no guarding. EXTREMITIES: No edema, no cyanosis. SKIN: Warm and dry. No generalized rash. NEUROLOGIC: Alert and oriented x 3, grossly nonfocal. PSYCHIATRIC: Cooperative, appropriate mood and affect. MUSCULOSKELETAL: No joint swelling. No decrease in range of motion. Medications: Inpatient Meds: Current Medications Medications (Trade) Dose Ordered Sig/Maritza Start Time Stop Time Status Last Admin Dose Admin Acetaminophen (Tylenol) 650 mg PRN Q6HRS PRN 08/13/18 20:45 08/15/18 02:56 650 MG Carvedilol (Coreg) 3.125 mg BIDWMEALS 08/14/18 10:30 08/14/18 17:44 3.125 MG Ciprofloxacin/ Dextrose 200 ml @ 200 mls/hr Q12HR 08/13/18 21:00 08/14/18 12:43 DC 08/14/18 08:23 200 MLS/HR Fentanyl Citrate (Fentanyl 2ml Vial) 50 mcg PRN Q2HR PRN 08/14/18 09:45 08/15/18 07:43 50 MCG Fluoxetine HCl (PROzac) 20 mg DAILYWBKFT 08/14/18 10:30 08/15/18 07:39 20 MG Lactobacillus Rhamnosus (Culturelle) 1 cap BID 08/14/18 21:00 08/15/18 07:38 1 CAP Metronidazole 100 ml @ 100 mls/hr Q8HRS 08/13/18 22:00 08/14/18 12:43 DC 08/14/18 05:15 100 MLS/HR Ondansetron HCl (Zofran Odt) 4 mg PRN Q6HRS PRN 08/14/18 09:45 Ondansetron HCl (Zofran) 4 mg PRN Q6HRS PRN 08/14/18 09:45 Oxycodone/ Acetaminophen (Percocet 5/325) 1 tab PRN Q4HRS PRN 08/15/18 09:30 Pantoprazole Sodium (PROTONIX VIAL for IV PUSH) 40 mg 1X ONCE 08/14/18 10:30 08/14/18 10:31 DC 08/14/18 09:56 40 MG Pantoprazole Sodium (Protonix) 40 mg DAILYAC 08/15/18 07:30 08/15/18 07:39 40 MG Piperacillin Sod/ Tazobactam Sod 3.375 gm/Sodium Chloride 50 ml @ 100 mls/hr Q6HRS 08/14/18 13:30 08/15/18 06:02 100 MLS/HR Sodium Chloride 1,000 ml @ 100 mls/hr Q10H 08/14/18 10:30 08/15/18 07:40 100 MLS/HR Labs: Lab Laboratory Tests Test 08/14/18 10:15 08/15/18 04:25 White Blood Count 14.1 x10^3/uL (4.0-11.0) 12.7 x10^3/uL (4.0-11.0) Red Blood Count 4.56 x10^6/uL (3.50-5.40) 4.06 x10^6/uL (3.50-5.40) Hemoglobin 13.4 g/dL (12.0-15.5) 12.2 g/dL (12.0-15.5) Hematocrit 41.0 % (36.0-47.0) 37.1 % (36.0-47.0) Mean Corpuscular Volume 90 fL (79-100) 92 fL (79-100) Mean Corpuscular Hemoglobin 29 pg (25-35) 30 pg (25-35) Mean Corpuscular Hemoglobin Concent 33 g/dL (31-37) 33 g/dL (31-37) Red Cell Distribution Width 13.9 % (11.5-14.5) 13.8 % (11.5-14.5) Platelet Count 278 x10^3/uL (140-400) 262 x10^3/uL (140-400) Neutrophils (%) (Auto) 72 % (31-73) Lymphocytes (%) (Auto) 20 % (24-48) Monocytes (%) (Auto) 6 % (0-9) Eosinophils (%) (Auto) 1 % (0-3) Basophils (%) (Auto) 1 % (0-3) Neutrophils # (Auto) 10.1 x10^3uL (1.8-7.7) Lymphocytes # (Auto) 2.8 x10^3/uL (1.0-4.8) Monocytes # (Auto) 0.9 x10^3/uL (0.0-1.1) Eosinophils # (Auto) 0.2 x10^3/uL (0.0-0.7) Basophils # (Auto) 0.1 x10^3/uL (0.0-0.2) Prothrombin Time 15.5 SEC (11.7-14.0) Prothromb Time International Ratio 1.3 (0.8-1.1) Sodium Level 140 mmol/L (136-145) 142 mmol/L (136-145) Potassium Level 3.5 mmol/L (3.5-5.1) 3.7 mmol/L (3.5-5.1) Chloride Level 103 mmol/L (98-107) 107 mmol/L (98-107) Carbon Dioxide Level 27 mmol/L (21-32) 24 mmol/L (21-32) Anion Gap 10 (6-14) 11 (6-14) Blood Urea Nitrogen 6 mg/dL (7-20) 4 mg/dL (7-20) Creatinine 0.7 mg/dL (0.6-1.0) 0.8 mg/dL (0.6-1.0) Estimated GFR (Cockcroft-Gault) 89.7 76.9 BUN/Creatinine Ratio 9 (6-20) 5 (6-20) Glucose Level 119 mg/dL (70-99) 118 mg/dL (70-99) Calcium Level 8.6 mg/dL (8.5-10.1) 8.2 mg/dL (8.5-10.1) Total Bilirubin 0.7 mg/dL (0.2-1.0) 0.3 mg/dL (0.2-1.0) Aspartate Amino Transf (AST/SGOT) 11 U/L (15-37) 13 U/L (15-37) Alanine Aminotransferase (ALT/SGPT) 16 U/L (14-59) 18 U/L (14-59) Alkaline Phosphatase 74 U/L (46-116) 78 U/L (46-116) Total Protein 7.3 g/dL (6.4-8.2) 6.5 g/dL (6.4-8.2) Albumin 3.0 g/dL (3.4-5.0) 2.8 g/dL (3.4-5.0) Albumin/Globulin Ratio 0.7 (1.0-1.7) 0.8 (1.0-1.7) Objective: Assessment: 1. Periumbilical left upper quadrant and left flank pain, sudden in onset with abdominal CT showing mesenteric edema in the epigastric region towards the mesenteric root and about mid to distal gastric body mild mesenteric edema around the pancreas. Lipase is within normal limits.Likely noninfectious as abdominal pain was sudden in onset 2. Fever, leukocytosis.pattern improving 3. Hepatic steatosis. 4. History of recent mastoidectomy, left, 05/18/2018, with myringotomy and tympanoplasty tube insertion, stable, released by surgeon at outside hospital 3 weeks ago. 5. History of kidney stones. UA negative at outside hospital. Plan: Plan of Care cont shellie for now will dc soon f/u EGD f/u stool cultures, doubt infectious as she has it for the last 6 months. Discussed with RN. LIZ TRAYLOR MD Aug 15, 2018 09:50
--- NOTE | 2018-08-15 15:55 | NUR ---
Pt to outpatient for EGD by wc. Family at bedside.
[2018-08-15] MEDS ORDERED: IV RINGERS,LACTATED 1000ML 1,000 ML IV ONE (16:30)
[2018-08-15] MEDS ORDERED: diphenhydrAMINE 50 MG/ML VIAL ONE (17:04)
[2018-08-15] MEDS ORDERED: MIDAZOLAM HCL/PF 5 MG/5 ML VIAL. ONE (17:04)
[2018-08-15] MEDS ORDERED: fentaNYL PF VIAL 100 MCG/2 ML VIAL ONE (17:04)
[2018-08-15] MEDS ORDERED: BENZOCAINE ONE 20% MUCOSAL SPRAY. (17:05)
[2018-08-15] MEDS ORDERED: PROPOFOL 40 ML IV ONE (17:09)
--- NOTE | 2018-08-15 17:23 | PDOC4 ---
PROCEDURE Procedure EGD/biopsy Indication: abd pain/abnormal CT Meds: per anesthesia. Findings: E--Irregular SC junction/isolated red spot c/w some degree of reflux. G--Small amount of retained food. Mild antral erythema, biopsied. Otherwise normal. D--particle of food in bulb, otherwise normal to third portion. Seamus. well. IMP: Mild reflux Non-specific antral erythema, biopsied. No clear cause for syndrome seen. REC: PPI if not on. Await biopsies. Sonogram and PIPIDA w/o EF to r/o acute GB issue though symptoms atypical. As able, will try to review CT from [place]. NOEMI GARZON MD Aug 15, 2018 17:23
[2018-08-16] MEDS: PIPERACILLIN/TAZOBACTAM 3.375 GM in IV NORMAL SALINE 50ML 50 ML IV SCH ×2 (00:06→05:22)
[2018-08-16] MEDS: fentaNYL PF VIAL 100 MCG/2 ML VIAL IV PRN ×4 (00:07→11:19)
[2018-08-16 03:30] VITALS: BP 137/70
[2018-08-16] MEDS: IV NORMAL SALINE 1000ML BAG 1,000 ML IV SCH (05:22)
[2018-08-16 07:02] LABS: BASO % 0 % (0-3); EOS # 0.2 x10^3/uL (0.0-0.7); EOS % 2 % (0-3); HEMATOCRIT 36.9 % (36.0-47.0); HEMOGLOBIN 12.1 g/dL (12.0-15.5); LYMPH # 2.7 x10^3/uL (1.0-4.8); LYMPH % 24 % (24-48); MEAN CORPUSCULAR HEMOGLOBIN 30 pg (25-35); MEAN CORPUSCULAR HGB CONC 33 g/dL (31-37); MEAN CORPUSCULAR VOLUME 90 fL (79-100); MONO # 0.8 x10^3/uL (0.0-1.1); MONO % 7 % (0-9); NEUT # 7.5 x10^3uL (1.8-7.7); NEUT % 67 % (31-73); PLATELET COUNT 318 x10^3/uL (140-400); RED BLOOD COUNT 4.08 x10^6/uL (3.50-5.40); RED CELL DISTRIBUTION WIDTH 13.7 % (11.5-14.5); WHITE BLOOD COUNT 11.1 x10^3/uL (4.0-11.0)
[2018-08-16 07:04] LABS: ALBUMIN 2.8 g/dL (3.4-5.0); ALBUMIN/GLOBULIN RATIO 0.7 (1.0-1.7); CALCIUM 8.5 mg/dL (8.5-10.1); CREATININE 0.7 mg/dL (0.6-1.0); GFR 89.7; POTASSIUM 3.7 mmol/L (3.5-5.1); TOTAL BILIRUBIN 0.4 mg/dL (0.2-1.0)
[2018-08-16 07:05] VITALS: BP 129/71
--- NOTE | 2018-08-16 08:09 | RAD ---
Right upper quadrant abdominal ultrasound, 08/15/2018: HISTORY: Epigastric pain The gallbladder is within normal limits in size. There is no sonographic evidence of cholelithiasis. The gallbladder wall is not thickened. The liver is enlarged measuring 21 cm in craniocaudad extent. It demonstrates increased echogenicity compatible with fatty change. No hepatic mass or intrahepatic bile duct dilatation is seen. The common hepatic duct was not clearly visualized. The pancreas was incompletely visualized due to overlying bowel. The right kidney is unremarkable. IMPRESSION: 1. No gallbladder abnormality is detected. 2. Hepatomegaly with increased hepatic echogenicity suggesting hepatic steatosis. Electronically signed by: Hal Rosas MD (08/16/2018 8:04 AM) [facility]
--- NOTE | 2018-08-16 09:32 | PDOC ---
Subjective: Subjective: Still hurts but improved w/ pain meds. Last night ate five bites of chicken noodle soup and rice after Fentanyl, then felt full. Was told her WBC was up to 17. Objective: Objective: Per RN - pt upset that nothing has been found, has reported "I'm not making this up." I called Dami in PACS - he is loading CT from [place] into system. Vital Signs: Vital Signs Date Time Temp Pulse Resp B/P (MAP) Pulse Ox O2 Delivery O2 Flow Rate FiO2 08/16/18 07:05 98.8 70 18 129/71 (90) 97 Room Air 98.8 Labs: Laboratory Tests Test 08/16/18 05:53 White Blood Count 11.1 x10^3/uL Red Blood Count 4.08 x10^6/uL Hemoglobin 12.1 g/dL Hematocrit 36.9 % Mean Corpuscular Volume 90 fL Mean Corpuscular Hemoglobin 30 pg Mean Corpuscular Hemoglobin Concent 33 g/dL Red Cell Distribution Width 13.7 % Platelet Count 318 x10^3/uL Neutrophils (%) (Auto) 67 % Lymphocytes (%) (Auto) 24 % Monocytes (%) (Auto) 7 % Eosinophils (%) (Auto) 2 % Basophils (%) (Auto) 0 % Neutrophils # (Auto) 7.5 x10^3uL Lymphocytes # (Auto) 2.7 x10^3/uL Monocytes # (Auto) 0.8 x10^3/uL Eosinophils # (Auto) 0.2 x10^3/uL Basophils # (Auto) 0.0 x10^3/uL Sodium Level 140 mmol/L Potassium Level 3.7 mmol/L Chloride Level 104 mmol/L Carbon Dioxide Level 25 mmol/L Anion Gap 11 Blood Urea Nitrogen 4 mg/dL Creatinine 0.7 mg/dL Estimated GFR (Cockcroft-Gault) 89.7 BUN/Creatinine Ratio 6 Glucose Level 101 mg/dL Calcium Level 8.5 mg/dL Total Bilirubin 0.4 mg/dL Aspartate Amino Transf (AST/SGOT) 12 U/L Alanine Aminotransferase (ALT/SGPT) 18 U/L Alkaline Phosphatase 73 U/L Total Protein 7.0 g/dL Albumin 2.8 g/dL Albumin/Globulin Ratio 0.7 Imaging: EGD 08/15 E--Irregular SC junction/isolated red spot c/w some degree of reflux. G--Small amount of retained food. Mild antral erythema, biopsied. Otherwise normal. D--particle of food in bulb, otherwise normal to third portion. IMP: Mild reflux Non-specific antral erythema, biopsied. No clear cause for syndrome seen. REC: PPI if not on. Await biopsies. Sonogram and PIPIDA w/o EF to r/o acute GB issue though symptoms atypical. As able, will try to review CT from [place]. US 08/15 IMPRESSION: 1. No gallbladder abnormality is detected. 2. Hepatomegaly with increased hepatic echogenicity suggesting hepatic steatosis. PE: GEN: NAD LUNGS: CTAB HEART: RRR ABD: tender to light touch between epigastrium and umbilicus, still tracks around to left NEURO/PSYCH: A & O 3, more calm today A/P: Upper abd pain, early satiety Fever (resolved), leucocytosis (still better) Abnormal CT @ [place] -- Workup here unrevealing so far. Will hopefully be able to view CT. Await HIDA. Continue PPI. JELANI KATE Aug 16, 2018 09:32
--- NOTE | 2018-08-16 10:46 | PDOC ---
Infectious Disease Note Subjective: Subjective pt continues to have abdominal pain aggravated after meals mainly lt upper quadrant had one loose bm ,unchanged from what she has at home no f/c/v/gu symptoms/sob/cough/headache/sore throat ROS: ROS Negative except for above. Vital Signs: Vital Signs Vital Signs Date Time Temp Pulse Resp B/P (MAP) Pulse Ox O2 Delivery O2 Flow Rate FiO2 08/16/18 08:00 Room Air 08/16/18 07:05 98.8 70 18 129/71 (90) 97 98.8 Physical Exam: PHYSICAL EXAM GENERAL: Alert, oriented x 3, pleasant female, well nourished, well developed, no acute distress, lying comfortably in bed. HEENT: Normocephalic, atraumatic, anicteric. No thrush. Oral mucosa moist. NECK: Supple. No JVD. No thyromegaly. LUNGS: Clear bilaterally. No wheezing. CARDIOVASCULAR: S1, S2. No gallops, murmurs, rubs. ABDOMEN: Soft. Tenderness in the periumbilical area going up the epigastric area with light palpation, tracking to the left flank. No masses felt. No rebound, no guarding. EXTREMITIES: No edema, no cyanosis. SKIN: Warm and dry. No generalized rash. NEUROLOGIC: Alert and oriented x 3, grossly nonfocal. PSYCHIATRIC: Cooperative, appropriate mood and affect. MUSCULOSKELETAL: No joint swelling. No decrease in range of motion. Medications: Inpatient Meds: Current Medications Medications (Trade) Dose Ordered Sig/Maritza Start Time Stop Time Status Last Admin Dose Admin Acetaminophen (Tylenol) 650 mg PRN Q6HRS PRN 08/13/18 20:45 08/15/18 02:56 650 MG Benzocaine (Hurricaine One) 1 spray STK-MED ONCE 08/15/18 17:05 08/15/18 17:07 DC Carvedilol (Coreg) 3.125 mg BIDWMEALS 08/14/18 10:30 08/15/18 18:41 3.125 MG Ciprofloxacin/ Dextrose 200 ml @ 200 mls/hr Q12HR 08/13/18 21:00 08/14/18 12:43 DC 08/14/18 08:23 200 MLS/HR Diphenhydramine HCl (Benadryl) 50 mg STK-MED ONCE 08/15/18 17:04 08/15/18 17:07 DC Fentanyl Citrate (Fentanyl 2ml Vial) 100 mcg STK-MED ONCE 08/15/18 17:04 08/15/18 17:05 DC Fluoxetine HCl (PROzac) 20 mg DAILYWBKFT 08/14/18 10:30 08/15/18 07:39 20 MG Lactobacillus Rhamnosus (Culturelle) 1 cap BID 08/14/18 21:00 08/15/18 20:55 1 CAP Metronidazole 100 ml @ 100 mls/hr Q8HRS 08/13/18 22:00 08/14/18 12:43 DC 08/14/18 05:15 100 MLS/HR Midazolam HCl (Versed) 5 mg STK-MED ONCE 08/15/18 17:04 08/15/18 17:05 DC Ondansetron HCl (Zofran Odt) 4 mg PRN Q6HRS PRN 08/14/18 09:45 Ondansetron HCl (Zofran) 4 mg PRN Q6HRS PRN 08/14/18 09:45 Oxycodone/ Acetaminophen (Percocet 5/325) 1 tab PRN Q4HRS PRN 08/15/18 09:30 Pantoprazole Sodium (PROTONIX VIAL for IV PUSH) 40 mg 1X ONCE 08/14/18 10:30 08/14/18 10:31 DC 08/14/18 09:56 40 MG Pantoprazole Sodium (Protonix) 40 mg DAILYAC 08/15/18 07:30 08/15/18 07:39 40 MG Piperacillin Sod/ Tazobactam Sod 3.375 gm/Sodium Chloride 50 ml @ 100 mls/hr Q6HRS 08/14/18 13:30 08/16/18 05:22 100 MLS/HR Propofol 40 ml @ As Directed STK-MED ONCE 08/15/18 17:09 08/15/18 17:10 DC Ringer's Solution 1,000 ml @ 75 mls/hr 1X ONCE 08/15/18 16:30 08/16/18 05:49 DC 08/15/18 16:13 75 MLS/HR Sodium Chloride 1,000 ml @ 100 mls/hr Q10H 08/14/18 10:30 08/16/18 05:22 100 MLS/HR Labs: Lab Laboratory Tests Test 08/16/18 05:53 White Blood Count 11.1 x10^3/uL (4.0-11.0) Red Blood Count 4.08 x10^6/uL (3.50-5.40) Hemoglobin 12.1 g/dL (12.0-15.5) Hematocrit 36.9 % (36.0-47.0) Mean Corpuscular Volume 90 fL (79-100) Mean Corpuscular Hemoglobin 30 pg (25-35) Mean Corpuscular Hemoglobin Concent 33 g/dL (31-37) Red Cell Distribution Width 13.7 % (11.5-14.5) Platelet Count 318 x10^3/uL (140-400) Neutrophils (%) (Auto) 67 % (31-73) Lymphocytes (%) (Auto) 24 % (24-48) Monocytes (%) (Auto) 7 % (0-9) Eosinophils (%) (Auto) 2 % (0-3) Basophils (%) (Auto) 0 % (0-3) Neutrophils # (Auto) 7.5 x10^3uL (1.8-7.7) Lymphocytes # (Auto) 2.7 x10^3/uL (1.0-4.8) Monocytes # (Auto) 0.8 x10^3/uL (0.0-1.1) Eosinophils # (Auto) 0.2 x10^3/uL (0.0-0.7) Basophils # (Auto) 0.0 x10^3/uL (0.0-0.2) Erythrocyte Sedimentation Rate 66 (0-25) Sodium Level 140 mmol/L (136-145) Potassium Level 3.7 mmol/L (3.5-5.1) Chloride Level 104 mmol/L (98-107) Carbon Dioxide Level 25 mmol/L (21-32) Anion Gap 11 (6-14) Blood Urea Nitrogen 4 mg/dL (7-20) Creatinine 0.7 mg/dL (0.6-1.0) Estimated GFR (Cockcroft-Gault) 89.7 BUN/Creatinine Ratio 6 (6-20) Glucose Level 101 mg/dL (70-99) Calcium Level 8.5 mg/dL (8.5-10.1) Total Bilirubin 0.4 mg/dL (0.2-1.0) Aspartate Amino Transf (AST/SGOT) 12 U/L (15-37) Alanine Aminotransferase (ALT/SGPT) 18 U/L (14-59) Alkaline Phosphatase 73 U/L (46-116) Total Protein 7.0 g/dL (6.4-8.2) Albumin 2.8 g/dL (3.4-5.0) Albumin/Globulin Ratio 0.7 (1.0-1.7) Objective: Assessment: 1. Periumbilical left upper quadrant and left flank pain, sudden in onset with abdominal CT showing mesenteric edema in the epigastric region towards the mesenteric root and about mid to distal gastric body mild mesenteric edema around the pancreas. Lipase is within normal limits.Likely noninfectious S/P EGD 2. Fever, leukocytosis.Resolved, Cult neg so far 3. Hepatic steatosis. 4. History of recent mastoidectomy, left, 05/18/2018, with myringotomy and tympanoplasty tube insertion, stable, released by surgeon at outside hospital 3 weeks ago. 5. History of kidney stones. UA negative at outside hospital. Plan: Plan of Care dc zosyn, change to empiric augmentin plans are for dc home later today per team GI plans noted f/u stool cultures, doubt infectious as she has it for the last 6 months and no change in pattern or frequency. f/u with pcp next week Discussed with BREEZY. LIZ TRAYLOR MD Aug 16, 2018 10:46
--- NOTE | 2018-08-16 10:46 | PDOC ---
PROGRESS NOTES Chief Complaint Chief Complaint GAstritis status post EGD 08/15/18 Enteritis, mesenteric inflammation around the pancreas Normal lipase Leukocytosis/SIRS - WBC 17 at [facility] Family history IBD-aunt Chronic diarrhea-2 loose stools 6 months Never had a c scope History of Present Illness History of Present Illness She did not DC yesterday, underwent EGD D because of pain or discomfort after eating Showed gastritis Patient does smoke 1 pack a day but none etoh No more diarrhea, still some left-sided abdominal pain but much better We discussed about trying to Percocet which I ordered yesterday Plan: for PIPIDA If neg PPIDA can go home later Pain medicine on chart including PPI once a day which was started by GI Follow-up GI for outpatient colonoscopy-we'll need this down the line, enteritis , family history of IBD Vitals Vitals Vital Signs Date Time Temp Pulse Resp B/P (MAP) Pulse Ox O2 Delivery O2 Flow Rate FiO2 08/16/18 08:00 Room Air 08/16/18 07:05 98.8 70 18 129/71 (90) 97 98.8 Physical Exam Physical Exam GENERAL: Alert, oriented x 3, pleasant female, well nourished, well developed, no acute distress, lying comfortably in bed. HEENT: Normocephalic, atraumatic, anicteric. No thrush. Oral mucosa moist. NECK: Supple. No JVD. No thyromegaly. LUNGS: Clear bilaterally. No wheezing. CARDIOVASCULAR: S1, S2. No gallops, murmurs, rubs. ABDOMEN: Soft. Tenderness in the periumbilical area going up the epigastric area with light palpation, tracking to the left flank. No masses felt. No rebound, no guarding. EXTREMITIES: No edema, no cyanosis. SKIN: Warm and dry. No generalized rash. NEUROLOGIC: Alert and oriented x 3, grossly nonfocal. PSYCHIATRIC: Cooperative, appropriate mood and affect. MUSCULOSKELETAL: No joint swelling. No decrease in range of motion. General: Alert, Oriented X3, Cooperative, No acute distress Abdomen: Soft, Other (hyperactive bowel sounds tenderness to moderate palpation epigastric area, no guarding) Extremities: No clubbing, No cyanosis, No edema, Normal pulses, No tenderness/ swelling Skin: No breakdown Labs LABS Laboratory Tests Test 08/16/18 05:53 White Blood Count 11.1 x10^3/uL (4.0-11.0) Red Blood Count 4.08 x10^6/uL (3.50-5.40) Hemoglobin 12.1 g/dL (12.0-15.5) Hematocrit 36.9 % (36.0-47.0) Mean Corpuscular Volume 90 fL (79-100) Mean Corpuscular Hemoglobin 30 pg (25-35) Mean Corpuscular Hemoglobin Concent 33 g/dL (31-37) Red Cell Distribution Width 13.7 % (11.5-14.5) Platelet Count 318 x10^3/uL (140-400) Neutrophils (%) (Auto) 67 % (31-73) Lymphocytes (%) (Auto) 24 % (24-48) Monocytes (%) (Auto) 7 % (0-9) Eosinophils (%) (Auto) 2 % (0-3) Basophils (%) (Auto) 0 % (0-3) Neutrophils # (Auto) 7.5 x10^3uL (1.8-7.7) Lymphocytes # (Auto) 2.7 x10^3/uL (1.0-4.8) Monocytes # (Auto) 0.8 x10^3/uL (0.0-1.1) Eosinophils # (Auto) 0.2 x10^3/uL (0.0-0.7) Basophils # (Auto) 0.0 x10^3/uL (0.0-0.2) Erythrocyte Sedimentation Rate 66 (0-25) Sodium Level 140 mmol/L (136-145) Potassium Level 3.7 mmol/L (3.5-5.1) Chloride Level 104 mmol/L (98-107) Carbon Dioxide Level 25 mmol/L (21-32) Anion Gap 11 (6-14) Blood Urea Nitrogen 4 mg/dL (7-20) Creatinine 0.7 mg/dL (0.6-1.0) Estimated GFR (Cockcroft-Gault) 89.7 BUN/Creatinine Ratio 6 (6-20) Glucose Level 101 mg/dL (70-99) Calcium Level 8.5 mg/dL (8.5-10.1) Total Bilirubin 0.4 mg/dL (0.2-1.0) Aspartate Amino Transf (AST/SGOT) 12 U/L (15-37) Alanine Aminotransferase (ALT/SGPT) 18 U/L (14-59) Alkaline Phosphatase 73 U/L (46-116) Total Protein 7.0 g/dL (6.4-8.2) Albumin 2.8 g/dL (3.4-5.0) Albumin/Globulin Ratio 0.7 (1.0-1.7) Review of Systems Review of Systems left Sided abdominal pain, otherwise rest of ROS 14 point negative Comment Review of Relevant I have reviewed the following items miquel (where applicable) has been applied. Labs Laboratory Tests Test 08/15/18 04:25 08/16/18 05:53 White Blood Count 12.7 x10^3/uL (4.0-11.0) 11.1 x10^3/uL (4.0-11.0) Red Blood Count 4.06 x10^6/uL (3.50-5.40) 4.08 x10^6/uL (3.50-5.40) Hemoglobin 12.2 g/dL (12.0-15.5) 12.1 g/dL (12.0-15.5) Hematocrit 37.1 % (36.0-47.0) 36.9 % (36.0-47.0) Mean Corpuscular Volume 92 fL (79-100) 90 fL (79-100) Mean Corpuscular Hemoglobin 30 pg (25-35) 30 pg (25-35) Mean Corpuscular Hemoglobin Concent 33 g/dL (31-37) 33 g/dL (31-37) Red Cell Distribution Width 13.8 % (11.5-14.5) 13.7 % (11.5-14.5) Platelet Count 262 x10^3/uL (140-400) 318 x10^3/uL (140-400) Sodium Level 142 mmol/L (136-145) 140 mmol/L (136-145) Potassium Level 3.7 mmol/L (3.5-5.1) 3.7 mmol/L (3.5-5.1) Chloride Level 107 mmol/L (98-107) 104 mmol/L (98-107) Carbon Dioxide Level 24 mmol/L (21-32) 25 mmol/L (21-32) Anion Gap 11 (6-14) 11 (6-14) Blood Urea Nitrogen 4 mg/dL (7-20) 4 mg/dL (7-20) Creatinine 0.8 mg/dL (0.6-1.0) 0.7 mg/dL (0.6-1.0) Estimated GFR (Cockcroft-Gault) 76.9 89.7 BUN/Creatinine Ratio 5 (6-20) 6 (6-20) Glucose Level 118 mg/dL (70-99) 101 mg/dL (70-99) Calcium Level 8.2 mg/dL (8.5-10.1) 8.5 mg/dL (8.5-10.1) Total Bilirubin 0.3 mg/dL (0.2-1.0) 0.4 mg/dL (0.2-1.0) Aspartate Amino Transf (AST/SGOT) 13 U/L (15-37) 12 U/L (15-37) Alanine Aminotransferase (ALT/SGPT) 18 U/L (14-59) 18 U/L (14-59) Alkaline Phosphatase 78 U/L (46-116) 73 U/L (46-116) Total Protein 6.5 g/dL (6.4-8.2) 7.0 g/dL (6.4-8.2) Albumin 2.8 g/dL (3.4-5.0) 2.8 g/dL (3.4-5.0) Albumin/Globulin Ratio 0.8 (1.0-1.7) 0.7 (1.0-1.7) Neutrophils (%) (Auto) 67 % (31-73) Lymphocytes (%) (Auto) 24 % (24-48) Monocytes (%) (Auto) 7 % (0-9) Eosinophils (%) (Auto) 2 % (0-3) Basophils (%) (Auto) 0 % (0-3) Neutrophils # (Auto) 7.5 x10^3uL (1.8-7.7) Lymphocytes # (Auto) 2.7 x10^3/uL (1.0-4.8) Monocytes # (Auto) 0.8 x10^3/uL (0.0-1.1) Eosinophils # (Auto) 0.2 x10^3/uL (0.0-0.7) Basophils # (Auto) 0.0 x10^3/uL (0.0-0.2) Erythrocyte Sedimentation Rate 66 (0-25) Laboratory Tests Test 08/16/18 05:53 White Blood Count 11.1 x10^3/uL (4.0-11.0) Red Blood Count 4.08 x10^6/uL (3.50-5.40) Hemoglobin 12.1 g/dL (12.0-15.5) Hematocrit 36.9 % (36.0-47.0) Mean Corpuscular Volume 90 fL (79-100) Mean Corpuscular Hemoglobin 30 pg (25-35) Mean Corpuscular Hemoglobin Concent 33 g/dL (31-37) Red Cell Distribution Width 13.7 % (11.5-14.5) Platelet Count 318 x10^3/uL (140-400) Neutrophils (%) (Auto) 67 % (31-73) Lymphocytes (%) (Auto) 24 % (24-48) Monocytes (%) (Auto) 7 % (0-9) Eosinophils (%) (Auto) 2 % (0-3) Basophils (%) (Auto) 0 % (0-3) Neutrophils # (Auto) 7.5 x10^3uL (1.8-7.7) Lymphocytes # (Auto) 2.7 x10^3/uL (1.0-4.8) Monocytes # (Auto) 0.8 x10^3/uL (0.0-1.1) Eosinophils # (Auto) 0.2 x10^3/uL (0.0-0.7) Basophils # (Auto) 0.0 x10^3/uL (0.0-0.2) Erythrocyte Sedimentation Rate 66 (0-25) Sodium Level 140 mmol/L (136-145) Potassium Level 3.7 mmol/L (3.5-5.1) Chloride Level 104 mmol/L (98-107) Carbon Dioxide Level 25 mmol/L (21-32) Anion Gap 11 (6-14) Blood Urea Nitrogen 4 mg/dL (7-20) Creatinine 0.7 mg/dL (0.6-1.0) Estimated GFR (Cockcroft-Gault) 89.7 BUN/Creatinine Ratio 6 (6-20) Glucose Level 101 mg/dL (70-99) Calcium Level 8.5 mg/dL (8.5-10.1) Total Bilirubin 0.4 mg/dL (0.2-1.0) Aspartate Amino Transf (AST/SGOT) 12 U/L (15-37) Alanine Aminotransferase (ALT/SGPT) 18 U/L (14-59) Alkaline Phosphatase 73 U/L (46-116) Total Protein 7.0 g/dL (6.4-8.2) Albumin 2.8 g/dL (3.4-5.0) Albumin/Globulin Ratio 0.7 (1.0-1.7) Microbiology 08/13/18 Blood Culture - Preliminary, Resulted NO GROWTH AFTER 2 DAYS Medications Current Medications Ciprofloxacin/ Dextrose 200 ml @ 200 mls/hr Q12HR IV Last administered on 08/14at 08:23; Start 08/13/18 at 21:00; Stop 08/14/18 at 12:43; Status DC Metronidazole 100 ml @ 100 mls/hr Q8HRS IV Last administered on 08/14/18at 05: 15; Start 08/13/18 at 22:00; Stop 08/14/18 at 12:43; Status DC Acetaminophen (Tylenol) 650 mg PRN Q6HRS PRN PO fever/pain Last administered on 08/15/18at 02:56; Start 08/13/18 at 20:45 Ondansetron HCl (Zofran) 4 mg PRN Q6HRS PRN IV NAUSEA/VOMITING; Start 08/14/18 at 09:45 Ondansetron HCl (Zofran Odt) 4 mg PRN Q6HRS PRN PO NAUSEA/VOMITING; Start 08/14 at 09:45 Fentanyl Citrate (Fentanyl 2ml Vial) 50 mcg PRN Q2HR PRN IV PAIN Last administered on 08/16/18at 05:22; Start 08/14/18 at 09:45 Pantoprazole Sodium (PROTONIX VIAL for IV PUSH) 40 mg DAILYAC IVP ; Start at 07:30; Stop 08/15/18 at 07:30; Status DC Pantoprazole Sodium (PROTONIX VIAL for IV PUSH) 40 mg 1X ONCE IVP Last administered on 08/14/18at 09:56; Start 08/14/18 at 10:30; Stop 08/14/18 at 10:31 ; Status DC Sodium Chloride 1,000 ml @ 100 mls/hr Q10H IV Last administered on 08/16/18at 05:22; Start 08/14/18 at 10:30 Carvedilol (Coreg) 3.125 mg BIDWMEALS PO Last administered on 08/15/18at 18:41; Start 08/14/18 at 10:30 Fluoxetine HCl (PROzac) 20 mg DAILYWBKFT PO Last administered on 08/15/18at 07: 39; Start 08/14/18 at 10:30 Pantoprazole Sodium (Protonix) 40 mg DAILYAC PO Last administered on 08/15/18at 07:39; Start 08/15/18 at 07:30 Piperacillin Sod/ Tazobactam Sod 3.375 gm/Sodium Chloride 50 ml @ 100 mls/hr Q6HRS IV Last administered on 08/16/18at 05:22; Start 08/14/18 at 13:30 Lactobacillus Rhamnosus (Culturelle) 1 cap BID PO Last administered on at 20:55; Start 08/14/18 at 21:00 Oxycodone/ Acetaminophen (Percocet 5/325) 1 tab 1X ONCE PO ; Start 08/15/18 at 09:30; Stop 08/15/18 at 09:31; Status DC Oxycodone/ Acetaminophen (Percocet 5/325) 1 tab PRN Q4HRS PRN PO PAIN; Start at 09:30 Ringer's Solution 1,000 ml @ 75 mls/hr 1X ONCE IV Last administered on at 16:13; Start 08/15/18 at 16:30; Stop 08/16/18 at 05:49; Status DC Midazolam HCl (Versed) 5 mg STK-MED ONCE .ROUTE ; Start 08/15/18 at 17:04; Stop 08/15/18 at 17:05; Status DC Fentanyl Citrate (Fentanyl 2ml Vial) 100 mcg STK-MED ONCE .ROUTE ; Start at 17:04; Stop 08/15/18 at 17:05; Status DC Diphenhydramine HCl (Benadryl) 50 mg STK-MED ONCE .ROUTE ; Start 08/15/18 at 17: 04; Stop 08/15/18 at 17:07; Status DC Benzocaine (Hurricaine One) 1 spray STK-MED ONCE .ROUTE ; Start 08/15/18 at 17: 05; Stop 08/15/18 at 17:07; Status DC Propofol 40 ml @ As Directed STK-MED ONCE IV ; Start 08/15/18 at 17:09; Stop at 17:10; Status DC Active Scripts Active Percocet 5-325 Mg Tablet (Oxycodone/Acetaminophen) 1 Each Tablet 1 Tab PO PRN Q6HRS PRN 7 Days Culturelle (Lactobacillus Rhamnosus Gg) 1 Each Cap.sprink 1 Cap PO BID MDD 1 7 Days [Pantoprazole] 40 MG Tablet.dr 40 Mg PO DAILYAC MDD 1 Ondansetron Odt (Ondansetron) 4 Mg Tab.rapdis 4 Mg PO PRN Q6HRS PRN MDD 1 Reported Coreg (Carvedilol) 3.125 Mg Tablet 3.125 Mg PO BIDWMEALS Prozac (Fluoxetine Hcl) 20 Mg Capsule 1 Cap PO DAILYWBKFT Vitals/I & O Vital Sign - Last 24 Hours 08/15/18 08/15/18 08/15/18 08/15/18 10:55 11:37 14:32 14:41 Temp 98.2 98.9 98.2 98.9 Pulse 72 75 Resp 19 18 B/P (MAP) 122/69 (86) 120/76 (91) Pulse Ox 98 97 O2 Delivery Room Air Room Air Room Air Room Air 08/15/18 08/15/18 08/15/18 08/15/18 16:08 16:09 17:23 17:35 Temp 97.8 97.0 97.0 97.8 97.0 97.0 Pulse 68 79 72 Resp 20 16 20 B/P (MAP) 149/58 132/74 Pulse Ox 97 95 96 O2 Delivery Room Air Room Air 08/15/18 08/15/18 08/15/18 08/15/18 17:46 18:24 18:41 18:45 Temp 97.0 97.0 Pulse 70 83 76 69 Resp 20 18 B/P (MAP) 122/73 139/83 (101) 138/96 138/96 (110) Pulse Ox 98 96 96 O2 Delivery Room Air Room Air Room Air 08/15/18 08/15/18 08/15/18 08/15/18 18:52 19:00 19:15 19:45 Pulse 86 78 80 Resp 18 18 18 B/P (MAP) 148/85 (106) 135/73 (93) 123/66 (85) Pulse Ox 97 93 94 O2 Delivery Room Air Room Air Room Air Room Air 08/15/18 08/15/18 08/15/18 08/15/18 20:00 20:15 21:01 21:15 Pulse 86 72 Resp 18 18 B/P (MAP) 130/72 (91) 140/88 (105) Pulse Ox 94 90 O2 Delivery Room Air Room Air Room Air Room Air 08/15/18 08/16/18 08/16/18 08/16/18 23:41 00:07 02:51 03:30 Temp 98.9 99.4 98.9 99.4 Pulse 72 70 Resp 18 18 B/P (MAP) 138/85 (102) 137/70 (92) Pulse Ox 94 85 O2 Delivery Room Air Room Air Room Air Room Air 08/16/18 08/16/18 08/16/18 08/16/18 05:22 05:52 07:05 08:00 Temp 98.8 98.8 Pulse 70 Resp 18 B/P (MAP) 129/71 (90) Pulse Ox 97 O2 Delivery Room Air Room Air Room Air Room Air Intake and Output 08/15/18 08/15/18 08/16/18 15:00 23:00 07:00 Intake Total 900 ml 2088 ml 250 ml Balance 900 ml 2088 ml 250 ml APOLINAR CULLEN MD Aug 16, 2018 10:46
[2018-08-16] MEDS ORDERED: LEVO500T59 PO (10:47)
[2018-08-16 11:05] VITALS: BP 127/60
[2018-08-16] MEDS ORDERED: NORMAL SALINE IV ONE (13:15)
[2018-08-16] MEDS ORDERED: SINCALIDE IV ONE (13:15)
[2018-08-16 15:19] VITALS: BP 157/87
--- NOTE | 2018-08-16 15:26 | RAD ---
Radionuclide hepatobiliary scan with gallbladder ejection fraction, 08/16/2018: HISTORY: Abdominal pain Following IV injection of 4.6 mCi of technetium 99m Choletec there was prompt uptake of the radionuclide from the blood stream by the liver. Activity is present in the bile ducts and gallbladder at 10 minutes. Imaging over the first hour demonstrated increasing gallbladder activity without extension into the small bowel. Following IV injection of 2.1 mcg of cholecystokinin activity does extend into the small bowel. The gallbladder ejection fraction was calculated at 44 percent. 30-50 percent is considered to be the borderline low range. IMPRESSION: 1. No evidence of cystic duct or common bile duct obstruction. 2. The gallbladder ejection fraction is 44 percent. Electronically signed by: Hal Rosas MD (08/16/2018 3:23 PM) [facility]
[2018-08-16 16:21] VITALS: BP 157/87
[2018-08-16] MEDS: PANTOPRAZOLE 40 MG TABLET.DR. PO SCH (16:21)
[2018-08-16] MEDS: LACTOBACILLUS RHAMNOSUS GG 1 CAPSULE. PO SCH (16:21)
[2018-08-16] MEDS: CARVEDILOL 3.125 MG TABLET. PO SCH (16:21)
[2018-08-16] MEDS: FLUoxetine HCL 20 MG CAPSULE PO SCH (16:21)
--- NOTE | 2018-08-16 17:20 | NUR ---
Pt discharged to home with . Able to tolerate eating without difficulty. Discussed follow up care with pt and spouse. Verbalized understanding of discharge instructions. Contact information given to pt for ID and GI docs.
[2018-08-16] MEDS ORDERED: AMOXICILLIN/K CLAV 875/125MG TABLET. PO SCH (21:00)
--- NOTE | 2018-08-17 17:07 | PATHOLOGY ---
[facility] Accession Number: [id number] . 01 Material submitted: . ANTRUM BIOPSY . 01 Clinical history: . Abdominal pain . 02 Diagnosis: Gastric biopsy, antrum: - Chronic gastritis, moderate to marked. [facility]/08/17/2018 . 02 Comment: Sections of the gastric biopsy reveal segments of gastric antral mucosa showing focally active, moderate to marked chronic inflammation. A properly controlled immunoperoxidase stain for Helicobacter, however, is negative for Helicobacter organisms. There is no evidence of malignancy. (JPM/db; 08/17/2018) . Special stain performed: Immunoperoxidase stain for Helicobacter . 02 Electronically signed: . Bryan Velarde MD, Pathologist NPI- [id number] . 01 Gross description: . The specimen is received in formalin, labeled "Danette De, antrum, BX", are 4 irregular fragments of granados mucosal tissues ranging from 0.2 cm up to 0.4 cm in greatest dimension and measuring 0.5 x 0.3 x 0.1 cm in aggregate, entirely submitted in A1. ([facility]; 08/16/2018) [facility]S . 02 Pathologist provided ICD-10: K29.50 . 02 CPT . 456469, [id number] Specimen Comment: A courtesy copy of this report has been sent to Specimen Comment: [phone], , . Specimen Comment: Report sent to ,DR WINTER / DR DUARTE Performed at: [facility] [address], [place], [place] [id number] MD Leonidas Amato MD Phone: [phone] Performed at: 02 [facility] [address], [place] [id number] MD Bryan Velarde MD Phone: [phone]
== END 2018-08-16 17:19 | disposition home or self-care (01) | DRG 392 ==
LOC: 6 SOUTH 17:55
PROVIDERS: ADMIT Family Medicine; ATTEND Family Medicine
PROC: 0DB68ZX Excision of Stomach, Via Natural or Artificial Opening Endoscopic, Diagnostic (ICD-10-PCS; principal; 2018-08-15 17:00)
DX: K29.70 Gastritis, unspecified, without bleeding (principal); R65.10 Systemic inflammatory response syndrome (SIRS) of non-infectious origin without acute organ dysfunction; K66.8 Other specified disorders of peritoneum; E66.9 Obesity, unspecified; K52.9 Noninfective gastroenteritis and colitis, unspecified; K21.9 Gastro-esophageal reflux disease without esophagitis; F17.210 Nicotine dependence, cigarettes, uncomplicated; F32.9 Major depressive disorder, single episode, unspecified; F41.9 Anxiety disorder, unspecified; I10 Essential (primary) hypertension; K76.0 Fatty (change of) liver, not elsewhere classified; N20.0 Calculus of kidney; Z90.710 Acquired absence of both cervix and uterus; Z88.8 Allergy status to other drugs, medicaments and biological substances; Z87.442 Personal history of urinary calculi; Z80.9 Family history of malignant neoplasm, unspecified; Z82.3 Family history of stroke; Z82.49 Family history of ischemic heart disease and other diseases of the circulatory system; Z68.37 Body mass index [BMI] 37.0-37.9, adult
CPT/HCPCS: 36415; 43239; 76705; 78227; 80053; 80307; 81001; 81220; 83690; 85025; 85027; 85610; 85651; 87040; 87045; 88305; 88342; A9537; C9113; J0744; J1200; J2250; J2543; J2704; J2805; J3010; J3490; J7030; J7120